=== PATIENT | female | born 2000 | race Caucasian/White ===

== ENCOUNTER 2022-11-24 09:16 | Emergency (ER) | payer OTHER ==
[~2022-11-24] VITALS: Ht 154.9 cm; Wt 53.5 kg
== END 2022-11-24 13:59 | disposition home or self-care (01) ==
LOC: ER 09:16
DX: O20.9 Hemorrhage in early pregnancy, unspecified (principal); Z3A.01 Less than 8 weeks gestation of pregnancy; R10.2 Pelvic and perineal pain

== ENCOUNTER 2023-05-09 13:24 | Emergency (ER) | payer OTHER ==
[~2023-05-09] VITALS: Ht 154.9 cm; Wt 54.9 kg
== END 2023-05-09 17:08 | disposition home or self-care (01) ==
LOC: ER 13:24
DX: M54.50 Low back pain, unspecified (principal)

== ENCOUNTER 2023-07-27 09:36 | Emergency (ER) | payer OTHER ==
[~2023-07-27] VITALS: Ht 154.9 cm; Wt 56.2 kg
== END 2023-07-27 10:28 | disposition home or self-care (01) ==
LOC: ER 09:36
DX: M54.89 Other dorsalgia (principal)